=== PATIENT | male | born 1985 | race African-American/Black ===

== ENCOUNTER 2018-01-01 04:20 | Emergency (ER) | payer SELFPAY ==
[~2018-01-01] VITALS: Ht 185.4 cm; Wt 70.0 kg
[~2018-01-01 04:20] MED LIST: ALBU8I INH
[2018-01-01 04:25] VITALS: BP 133/90; PULSE 80; RESP 18; TEMP 97.8; O2SAT 99
--- NOTE | 2018-01-01 04:56 | RADRPT ---
EXAM DATE/TIME: 01/01/2018 04:44 [place] COMPARISON: No previous studies available for comparison. INDICATIONS : Chest pain. MEDICAL HISTORY : Hypertension. SURGICAL HISTORY : None. ENCOUNTER: Initial ACUITY: 1 day PAIN SCORE: 10/10 LOCATION: Bilateral chest FINDINGS: A single view of the chest demonstrates the lungs to be symmetrically aerated without evidence of mas s, infiltrate or effusion. The cardiomediastinal contours are unremarkable. Osseous structures are intact. CONCLUSION: No acute disease. Brennan Lovell MD on January 01, 2018 at 4:53 Board Certified Radiologist. This report was verified electronically.
--- NOTE | 2018-01-01 19:59 | EKG ---
Date Performed: 01/01/2018 Time Performed: 04:35:49 PTAGE: 32 years EKG: Sinus rhythm ST ELEVATION, PROBABLY EARLY REPOLARIZATION BORDERLINE ECG Since the PREVIOUS TRACING , no significant change noted PREVIOUS TRACIN10/04/2013 22.36 DOCTOR: Arturo Bragg Interpretating Date/Time 01/01/2018 19:57:43
[2018-01-01] MEDS ORDERED: IBUP-232 PO (23:35)
== END 2018-01-01 05:08 | disposition left against medical advice (07) ==
LOC: NED 05:00
DX: Z53.21 Procedure and treatment not carried out due to patient leaving prior to being seen by health care provider (principal); R94.31 Abnormal electrocardiogram [ECG] [EKG]
CPT/HCPCS: 71045; 93005; 99281

== ENCOUNTER 2018-01-01 21:06 | Emergency (ER) | payer SELFPAY ==
[2018-01-01 21:15] VITALS: BP 151/84; PULSE 90; RESP 20; TEMP 98.7; O2SAT 99
[2018-01-01 21:34] VITALS: BP 144/98; PULSE 98; RESP 18; O2SAT 100
[2018-01-01 22:04] VITALS: BP 148/98; PULSE 98; RESP 18; O2SAT 100
--- NOTE | 2018-01-01 22:22 | PD ---
HPI Chief Complaint: Chest Pain Time Seen by Provider: 21:59 Travel History International Travel<30 days: No Contact w/Intl Traveler<30days: No Traveled to known affect area: No History of Present Illness HPI 32yo M with PMH of HTN here with c/o chest pain since last night. He went to [facility] last night and had CXR and EKG done at triage but wait was too long so left before evaluation. Pt said yesterday he had pain that went to his right arm but now it is only in mid chest. It is a sharp pain. Also with some right rib pain that is only there with movement. Denies any sob, n/v, abdominal pain, fever, cough, focal weakness or numbness. Denies any family history of sudden cardiac . Pain is better sitting up than lying down. PFSH Past Medical History Asthma: Yes Autoimmune Disease: No Cancer: No Cardiovascular Problems: No Cerebrovascular Accident: No Diminished Hearing: No Endocrine: No Gastrointestinal Disorders: No Genitourinary: No Headaches: Yes (OCC.) Hypertension: Yes Immune Disorder: No Implanted Vascular Access Dvce: No Musculoskeletal: No Neurologic: Yes Psychiatric: No Respiratory: Yes Migraines: No Seizures: No Influenza Vaccination: No Past Surgical History Surgical History: No Previous Surgery Other Surgery: No Social History Alcohol Use: Yes (Daily) Tobacco Use: Yes (1ppd) Substance Use: No Allergies-Medications (Allergen,Severity, Reaction): Coded Allergies: No Known Allergies (Verified Adverse Reaction, Unknown, 01/01/18) Reported Meds & Prescriptions Reported Meds & Active Scripts Active Ibuprofen 600 Mg Tab 600 Mg PO Q8H PRN Review of Systems Except as stated in HPI: all other systems reviewed are Neg Physical Exam Narrative GENERAL: 32yo M not in distress. SKIN: Focused skin assessment warm/dry. HEAD: Atraumatic. Normocephalic. EYES: Pupils equal and round. No scleral icterus. No injection or drainage. ENT: No nasal bleeding or discharge. Mucous membranes pink and moist. NECK: Trachea midline. No JVD. CARDIOVASCULAR: Regular rate and rhythm. No murmur appreciated. RESPIRATORY: No accessory muscle use. Clear to auscultation. Breath sounds equal bilaterally. GASTROINTESTINAL: Abdomen soft, non-tender, nondistended. MUSCULOSKELETAL: No ttp right rib. No obvious deformities. No clubbing. No cyanosis. No edema. NEUROLOGICAL: Awake and alert. No obvious cranial nerve deficits. Motor grossly within normal limits in all extremities. Normal speech. PSYCHIATRIC: Appropriate mood and affect; insight and judgment normal. Data Data Last Documented VS Vital Signs Date Time Temp Pulse Resp B/P (MAP) Pulse Ox O2 Delivery O2 Flow Rate FiO2 01/01/18 23:04 83 18 140/93 (109) 99 Room Air 01/01/18 21:15 98.7 Orders Orders Basic Metabolic Panel (Bmp) (01/01/18 22:17) Complete Blood Count With Diff (01/01/18 22:17) Prothrombin Time / Inr (Pt) (01/01/18 22:17) Act Partial Throm Time (Ptt) (01/01/18 22:17) Troponin I (01/01/18 22:17) Electrocardiogram (01/01/18 21:23) Ibuprofen (Motrin) (01/01/18 23:00) Ed Discharge Order (01/01/18 23:35) Labs Laboratory Tests Test 01/01/18 22:25 White Blood Count 11.5 TH/MM3 Red Blood Count 4.81 MIL/MM3 Hemoglobin 15.8 GM/DL Hematocrit 48.2 % Mean Corpuscular Volume 100.2 FL Mean Corpuscular Hemoglobin 33.0 PG Mean Corpuscular Hemoglobin Concent 32.9 % Red Cell Distribution Width 14.4 % Platelet Count 168 TH/MM3 Mean Platelet Volume 9.6 FL Neutrophils (%) (Auto) 61.1 % Lymphocytes (%) (Auto) 24.3 % Monocytes (%) (Auto) 10.3 % Eosinophils (%) (Auto) 1.7 % Basophils (%) (Auto) 2.6 % Neutrophils # (Auto) 7.0 TH/MM3 Lymphocytes # (Auto) 2.8 TH/MM3 Monocytes # (Auto) 1.2 TH/MM3 Eosinophils # (Auto) 0.2 TH/MM3 Basophils # (Auto) 0.3 TH/MM3 CBC Comment DIFF FINAL Differential Comment Prothrombin Time 10.3 SEC Prothromb Time International Ratio 1.0 RATIO Activated Partial Thromboplast Time 28.9 SEC Blood Urea Nitrogen 11 MG/DL Creatinine 1.30 MG/DL Random Glucose 83 MG/DL Calcium Level 8.9 MG/DL Sodium Level 137 MEQ/L Potassium Level 3.4 MEQ/L Chloride Level 101 MEQ/L Carbon Dioxide Level 27.6 MEQ/L Anion Gap 8 MEQ/L Estimat Glomerular Filtration Rate 78 ML/MIN Troponin I LESS THAN 0.02 NG/ML MDM Medical Decision Making Medical Screen Exam Complete: Yes Emergency Medical Condition: Yes Interpretation(s) EKG: NSR 94bpm. LAD. 1mm ST elevation in Differential Diagnosis Pericarditis vs. costochondritis vs. musculoskeletal pain vs. GERD Narrative Course 32yo M with very atypical chest pain. Pt went to [facility] and had CXR and EKG this morning at 4am. CXR negative. Labs reviewed, negative troponin. Pt given ibuprofen with improvement of pain. Do not think this is cardiac. Return precautions given. Diagnosis Primary Impression: Atypical chest pain Patient Instructions: General Instructions Departure Forms: Tests/Procedures Additional Instructions: Please follow up with [facility] in 2-3 days. Return to the ED if symptoms worsen. Med/Other Pt SpecificInfo: Prescription(s) given Scripts Ibuprofen (Ibuprofen) 600 Mg Tab 600 MG PO Q8H Y for PAIN, #20 TAB 0 Refills Prov: Kennedi Ruiz DO 01/01/18 Disposition: 01 DISCHARGE HOME Condition: Stable Kennedi Ruiz DO Jan 01, 2018 22:22
[2018-01-01 22:34] VITALS: BP 144/95; PULSE 82; RESP 18; O2SAT 100
[2018-01-01 22:41] LABS: CHLORIDE 101 MEQ/L (98-107); SODIUM (NA) 137 MEQ/L (136-145)
[2018-01-01 22:43] LABS: CALCIUM 8.9 MG/DL (8.5-10.1)
[2018-01-01 22:44] LABS: BICARBONATE 27.6 MEQ/L (21.0-32.0); BLOOD UREA NITROGEN 11 MG/DL (7-18); GLUCOSE,RANDOM 83 MG/DL (74-106); PROTHROMBIN TIME - PATIENT 10.3 SEC (9.8-11.6)
[2018-01-01 22:47] LABS: GLOMERULAR FILTRATION RATE 78 ML/MIN (>89)
[2018-01-01 22:52] LABS: TROPONIN I LESS THAN 0.02 NG/ML (0.02-0.05)
[2018-01-01] MEDS ORDERED: IBUPROFEN 600 MG TAB PO ONE (23:00)
[2018-01-01 23:04] VITALS: BP 140/93; PULSE 83; RESP 18; O2SAT 99
[2018-01-01] MEDS ORDERED: IBUP-232 PO (23:35)
[2018-01-01 23:38] LABS: BASOPHIL # 0.3 TH/MM3 (0-0.2); BASOPHIL % 2.6 % (0.0-2.0); EOSINOPHIL # 0.2 TH/MM3 (0-0.4); EOSINOPHIL % 1.7 % (0.0-4.0); HEMATOCRIT 48.2 % (39.0-51.0); HEMOGLOBIN 15.8 GM/DL (13.0-17.0); LYMPH % 24.3 % (9.0-44.0); LYMPHOCYTE # 2.8 TH/MM3 (1.0-4.8); MEAN CELL VOLUME 100.2 FL (80.0-100.0); MEAN CORPUSCULAR HGB CONC 32.9 % (32.0-36.0); MEAN PLATELET VOLUME 9.6 FL (7.0-11.0); MONO % 10.3 % (0.0-8.0); MONOCYTE # 1.2 TH/MM3 (0-0.9); NEUT % 61.1 % (16.0-70.0); PLATELET COUNT 168 TH/MM3 (150-450); RED BLOOD COUNT 4.81 MIL/MM3 (4.50-5.90); RED CELL DISTRIBUTION WIDTH 14.4 % (11.6-17.2); WHITE BLOOD COUNT 11.5 TH/MM3 (4.0-11.0)
[2018-01-01 23:55] VITALS: BP 140/93
--- NOTE | 2018-01-02 19:49 | EKG ---
Date Performed: 01/01/2018 Time Performed: 21:23:54 PTAGE: 32 years EKG: Sinus rhythm BORDERLINE LEFT AXIS DEVIATION Since the previous tracing, no significant change noted BORDERLINE EC G PREVIOUS TRACING : 01/01/18 @ 0435 DOCTOR: Arturo Bragg Interpretating Date/Time 01/02/2018 19:47:22
== END 2018-01-01 23:59 | disposition home or self-care (01) ==
LOC: PHED 21:06
DX: R07.89 Other chest pain (principal); F17.200 Nicotine dependence, unspecified, uncomplicated
CPT/HCPCS: 80048; 84484; 85025; 85610; 85730; 93005; 99284